=== PATIENT | female | born 1965 | race Caucasian/White ===

== ENCOUNTER 2019-01-31 05:59 | Emergency (ER) | payer OTHER, SELFPAY ==
[2019-01-31 06:05] VITALS: BP 148/94; PULSE 86; RESP 16; TEMP 36.5; O2SAT 97; BMI 45.7
--- NOTE | 2019-01-31 06:05 | ED_ITS ---
HPI - General Adult General Chief complaint: Extremity Problem,Nontraumatic Stated complaint: bilateral knee pain, right knee is new pain Time Seen by Provider: 01/31/19 06:02 Source: patient Mode of arrival: ambulatory Limitations: no limitations History of Present Illness HPI narrative: 53-year-old female with known left knee osteoarthritis. She states she has been told that she needs a knee replacement however she has also been told that she needs to lose weight prior to this procedure. She is here today for right knee pain. States that it occurred yesterday when she was walking. [place] a pop and since then has had pain to the point where was difficult for her to walk. No fevers. Related Data Previous Rx's Medication Instructions Recorded hydrocodone-acetaminophen [[place]] 1 tab PO Q4-6H PRN #10 tab 01/31/19 Review of Systems Constitutional Denies fever(s) ENT Ears, Nose, Mouth, and Throat: Denies disequilibrium Cardiovascular Denies chest pain and Denies dyspnea Respiratory Denies dyspnea Gastrointestinal Gastrointestinal: Denies abdominal pain Musculoskeletal Denies myalgias, Reports arthralgias (Right knee pain) and Denies numbness Integumentary/Breasts Denies rash Neurologic Denies numbness and Denies disequilibrium Hematologic/Lymphatic Denies easy bleeding and Denies easy bruising [facility] Medical History Osteoarthritis (Acute) Social History Smoking Status: Never smoker Social History Smoking Status: Never smoker Exam Initial Vital Signs Initial Vital Signs: Vital Signs Temperature 97.7 F 01/31/19 06:05 Pulse Rate 86 01/31/19 06:05 Respiratory Rate 16 01/31/19 06:05 Blood Pressure 148/94 H 01/31/19 06:05 Pulse Oximetry 97 01/31/19 06:05 Const General: cooperative, well developed, well groomed and No acute distress Orientation: alert, awake and oriented x3 Skin Lesions: no lesions Rashes: no rashes Neuro Cognition: normal cognition Speech: speech normal Sensory Exam: no sensory deficits noted Extrem Other: Patient with tenderness to palpation along the medial lateral joint line and the lateral hamstring. No effusion. Able to do a straight leg raise. Psych Appearance: grossly normal and well kempt Procedures Orthopedic Splinting/Casting Injury #1: Side: right Lower Extremity Injury Location: knee Lower Extremity Immobilizer: Micky wrap Post splinting neuro exam: intact and no change Post splinting vascular exam: no change Placed by: Nursing Course Orders Ordered: ED Orders 01/31/19 06:11 XR knee RT 3V Stat Discontinued Medications Hydromorphone HCl (Dilaudid) 1 mg IM NOW ONE Stop: 01/31/19 06:12 Last Admin: 01/31/19 06:29 Dose: 1 mg Vital Signs - 8 hr 01/31/19 06:05 Temperature 97.7 F Pulse Rate 86 Respiratory Rate 16 Blood Pressure 148/94 H Pulse Oximetry 97 Medical Decision Making Imaging Data Knee x-ray: Attestation: I personally reviewed and interpreted this imaging study as follows: My impression: No fractures, no acute pathology, osteoarthritis MDM Narrative Medical decision making narrative: Patient is neurovascularly intact. X-ray shows no fractures. Reports some improvement with the pain medication. I suspect that she flared her underlying osteoarthritis. Potentially has a meniscal injury. Will have her follow up with her primary provider. She was given return precautions follow-up instructions. She expressed understanding and agreement with plan. Discharge Plan Departure Patient Disposition: Home Clinical Impression: Acute pain of right knee Instructions: DI for Knee Pain Activity Restrictions/Additional Instructions: Contact your primary care provider for follow-up. Return to the emergency department for any new or worsening symptoms. You have no restrictions on your activity Prescriptions: New hydrocodone-acetaminophen [[place]] 5-325 mg tablet 1 tab PO Q4-6H PRN (Reason: pain) Qty: 10 RF: 0
--- NOTE | 2019-01-31 06:11 | DI.RAD.S_ITS ---
PROCEDURE: XR KNEE RT 3V INDICATIONS: pain after walking yesterday TECHNIQUE: 3 views of the knee were acquired. COMPARISON: None. FINDINGS: Bones: No fractures or dislocations. No suspicious bony lesions. There mild to moderate degenerative changes of the right knee. Soft tissues: No significant joint effusion. No suspicious soft tissue calcifications. IMPRESSION: No acute osseous abnormality of the right knee. Note: The preliminary ED findings and the final radiology report are concordant. Dictated by: Bertrand Byrd M.D. on 01/31/2019 at 7:47 Approved by: Bertrand Byrd M.D. on 01/31/2019 at 7:48
[2019-01-31] MEDS: HYDROMORPHONE 1 MG INJ IM (06:29)
[2019-01-31 07:32] VITALS: BP 127/73; PULSE 86; RESP 16; O2SAT 97
== END 2019-01-31 07:33 | disposition home or self-care (01) ==
PROVIDERS: Emergency Provider Emergency Medicine
DX: M25.561 Pain in right knee (principal); Y93.01 Activity, walking, marching and hiking
CPT/HCPCS: 73562; 96372; 99283; J1170